=== PATIENT | female | born 1955 | race Caucasian/White ===

== ENCOUNTER 2022-03-03 19:13 | Emergency (ER) | payer MEDICAID ==
[~2022-03-03] VITALS: Ht 162.6 cm; Wt 72.6 kg
[~2022-03-03 19:13] MED LIST: NYQUIL; [UNRECOGNIZED DRUG - CODE] PO
--- NOTE | 2022-03-03 19:13 | NUR ---
PT BROUGHT TO BED 4 VIA [facility]
[2022-03-03 19:15] VITALS: BP 147/69
--- NOTE | 2022-03-03 19:15 | NUR ---
SLAVA FROM [facility] WITH C/O LOW O2 SAURATION. PT IS TRACH TOVENT, RT NOW AT BEDSIDE. PEG NOTED TO MID ABDOMEN, F/C IN PLACE
[2022-03-03 20:03] LABS: BASOPHILS % (AUTO) 0.1 % (0.0-2.0); HEMATOCRIT 28.2 % (36-48); HEMOGLOBIN 8.7 g/dL (12.0-16.0); LYMPHOCYTES # (AUTO) 0.2 K/uL (2.5-16.5); LYMPHOCYTES % (AUTO) 1.5 % (20.5-51.1); MEAN CORPUSCULAR HEMOGLOBIN 21 pg (27-31); MEAN CORPUSCULAR HGB CONC 31 g/dL (33-37); MEAN CORPUSCULAR VOLUME 69.7 fL (80-94); MONOCYTES # (AUTO) 0.6 K/uL (0.8-1.0); MONOCYTES % (AUTO) 4.2 % (1.7-9.3); NEUTROPHILS # (AUTO) 14.3 K/uL (1.8-7.7); NEUTROPHILS % (AUTO) 94.2 % (42.2-75.2); PLATELET COUNT (AUTO) 366 K/uL (140-450); RED BLOOD CELL COUNT(AUTO) 4.05 MIL/uL (4.20-5.40); RED CELL DISTRIBUTION WIDTH 21.1 % (11.6-13.7); WHITE BLOOD COUNT (AUTO) 15.2 K/uL (4.8-10.8)
--- NOTE | 2022-03-03 20:15 | NUR ---
BARBARA AND INFLUENZA SWABS OBTAINED AND SENT TO LAB
[2022-03-03 20:17] LABS: ALBUMIN 1.8 g/dL (3.4-5.0); ANION GAP 17.6 (8-16); CARBON DIOXIDE 24.4 mmol/L (21-32); CREATININE 1.5 mg/dL (0.6-1.3); TOTAL BILIRUBIN 0.9 mg/dL (0.0-1.0)
[2022-03-03] MEDS ORDERED: NACL 0.9% 500 ML IV ONE (21:20)
[2022-03-03] MEDS ORDERED: METOPROLOL 5 MG/5 ML VIAL IVP ONE (21:20)
[2022-03-03 21:44] VITALS: BP 107/61
--- NOTE | 2022-03-03 22:00 | NUR ---
REPOSITIONED FOR COMFORT
[2022-03-03] MEDS ORDERED: cefTRIAXone 1,000 MG VIAL ONE (23:45)
--- NOTE | 2022-03-04 | NUR ---
RESTING COMFORTABLY IN NAD
[2022-03-04 01:36] VITALS: BP 86/46
--- NOTE | 2022-03-04 02:00 | NUR ---
RT AT BEDSIDE. PT SLIGHTLY MORE AWAKE
[2022-03-04 04:20] VITALS: BP 101/63
--- NOTE | 2022-03-04 06:00 | NUR ---
IS AWAKE, MOVING INBED, ASSISTED WITH POSITIONING FOR COMFORT
--- NOTE | 2022-03-04 07:06 | NUR ---
attempting to call report, transfered to several extensions and no answer
--- NOTE | 2022-03-04 07:21 | NUR ---
RECEIVED REPORT FROM ZIGGY BOYLE. TRANSFER OF CARE AT THIS TIME.
--- NOTE | 2022-03-04 07:49 | NUR ---
PT RESTING IN BED, TRACHEA TO VENT, RT AT PT BEDSIDE FOR EVALUATION. VSS, WILL CONTINUE TO MONITOR.
[2022-03-04 08:32] VITALS: BP 118/52
--- NOTE | 2022-03-04 08:35 | NUR ---
EMPTIED 450CC OF FLORENCIA COLR URINE. NO SEDIMENT NOTED.
--- NOTE | 2022-03-04 08:36 | NUR ---
Patient to be transferred to [facility]. Is being transferred due to HIGHER LEVEL OF CARE INSURANCE REQUEST. Receiving facility has accepting physician and available space. ER physician has signed transfer form. Patient or responsible green party has agreed to transfer and signed form. Patient belongings inventoried and will be sent with patient. Copy of nursing notes, lab reports, EKG, Physicians Orders and X-rays to be sent with patient. Report called to TEREZA RN BY TAMAR TRINH at receiving facility. [facility] ambulance service has been called for transfer. ETA is 40MIN.
== END 2022-03-04 08:36 | disposition short-term general hospital (02) ==
LOC: MED 19:13
DX: I48.20 Chronic atrial fibrillation, unspecified (principal); Z20.822 Contact with and (suspected) exposure to COVID-19; J44.9 Chronic obstructive pulmonary disease, unspecified; E11.9 Type 2 diabetes mellitus without complications; F03.90 Unspecified dementia, unspecified severity, without behavioral disturbance, psychotic disturbance, mood disturbance, and anxiety; Z79.4 Long term (current) use of insulin; Z79.899 Other long term (current) drug therapy
CPT/HCPCS: 36415; 71045; 80053; 83605; 83880; 84484; 85025; 87426; 87804; 93005; 96361; 96365; 96375; 99291; J0696; J3490; J7030; Q0092